=== PATIENT | female | born 1990 | race Caucasian/White ===

== ENCOUNTER 2018-08-25 11:31 | Emergency (ER) | payer OTHER ==
[~2018-08-25] VITALS: Ht 152.4 cm; Wt 79.2 kg
[~2018-08-25 11:31] MED LIST: IBUP-1544 PO; PERCOCET PO; PREN1TAB49 PO
[2018-08-25 11:36] VITALS: BP 135/76; PULSE 71; RESP 18; Ht 152.4 cm; Wt 79.2 kg
--- NOTE | 2018-08-25 12:44 | ERD ---
ER Documentation Chief Complaint Chief Complaint diarrhea HPI The patient is a 27-year-old female, presenting to the ER because of diarrhea with lower abdominal discomfort for the last 3 days, hematemesis/hematochezia, fever, chills, neck pain, chest pain, dyspnea. She had fast food prior to having the symptoms. She does not smoke nor drink, has irregular menstrual period, LMP was 2 years ago Past medical history: None Past surgical history: 3 ROS All systems reviewed and are negative except as per history of present illness. Medications Home Meds Active Scripts Loperamide Hcl* (Imodium*) 2 Mg Capsule, 2 MG PO .AFTER EA LOOSE BM PRN for DIARRHEA, #10 TAB Prov:AUREA HARGROVE MD 08/25/18 Oxycodone Hcl/Acetaminophen (Percocet) 1 Tab Tab, 2 TAB PO Q4H PRN for PAIN LEVEL 6-10, #30 TAB 0 Refills Prov:PATRICIA GUARDADO MD 11/23/15 Ibuprofen* (Ibuprofen*) 800 Mg Tablet, 800 MG PO Q8, #20 TAB 0 Refills Prov:PATRICIA GUARDADO MD 11/23/15 Reported Medications Vits W-Ca,Fe,Fa(<1MG) () 1 Tab Tablet, 1 TAB PO DAILY 11/14/11 Allergies Allergies: Coded Allergies: No Known Drug Allergies (Verified Allergy, Unknown, 11/02/15) PMhx/Soc History of Surgery: No Anesthesia Reaction: No Hx Neurological Disorder: No Hx Respiratory Disorders: No Hx Cardiac Disorders: No Hx Psychiatric Problems: No Hx Miscellaneous Medical Probl: No Hx Alcohol Use: No Hx Substance Use: No Hx Tobacco Use: No Physical Exam Vitals Vital Signs Date Temp Pulse Resp B/P (MAP) Pulse Ox O2 O2 Flow FiO2 Time Delivery Rate 08/25/18 98.2 71 18 135/76 99 11:36 (95) Physical Exam Const: No acute distress. Head: Atraumatic. Eyes: Normal Conjunctiva. ENT: Normal External Ears, Nose and Mouth. Neck: Full range of motion. No meningismus. Resp: Clear to auscultation bilaterally. Cardio: Regular rate and rhythm. Abd: Soft, non distended, normal bowel sounds, non tender. Skin: No petechiae or rashes. Back: No midline or flank tenderness. Ext: No cyanosis, or edema. Neur: Awake and alert. No focal deficit Psych: Normal Mood and Affect. Results 24 hrs Laboratory Tests Test 08/25/18 13:30 Bedside Urine pH (LAB) 8.5 Bedside Urine Protein (LAB) Negative Bedside Urine Glucose (UA) Negative Bedside Urine Ketones (LAB) Negative Bedside Urine Blood 1+ Bedside Urine Nitrite (LAB) Negative Bedside Urine Leukocyte Esterase (L Negative POC Beta HCG, Qualitative NEGATIVE Procedures/MDM MEDICAL MAKING DECISION: The patient is a 27-year-old female, presenting with acute diarrhea, most likely food poisoning, is stable for outpatient follow-up The differential diagnoses considered include but are not limited to cholelithiasis, cholecystitis, choledocholithiasis, cholangitis, pancreatitis, hepatitis, gastritis, peptic ulcer disease, gastric ulcer, appendicitis, cystitis, diverticulitis, partial small bowel obstruction. Departure Diagnosis: Primary Impression: Diarrhea Additional Impression: Abdominal pain Condition: Good Comments She was discharged with Imodium I discussed the findings with the patient. I advised the patient to follow-up with the primary physician in about 1-2 days, sooner if needed and return if any concern. Disclaimer: Inadvertent spelling and grammatical errors are likely due to EHR/dictation software use and do not reflect on the overall quality of patient care. Also, please note that the electronic time recorded on this note does not necessarily reflect the actual time of the patient encounter. AUREA HARGROVE MD Aug 25, 2018 12:44
[2018-08-25] MEDS ORDERED: LOPE2CAP PO (13:44)
== END 2018-08-25 14:07 | disposition home or self-care (01) ==
LOC: FTE 11:31
DX: R19.7 Diarrhea, unspecified (principal); R10.9 Unspecified abdominal pain
CPT/HCPCS: 81003; 81025; Z7502; 99282